=== PATIENT | female | born 1945 | race Caucasian/White ===

== ENCOUNTER → 2022-12-30 | Outpatient (CLI) | payer MEDICARE, OTHER, SELFPAY ==
[2022-12-30 12:51] LABS: Amphetamine Urine VISTA NEGATIVE (<1000 ng/mL); Barbiturate Urine VISTA NEGATIVE (< 200 ng/mL); Benzodiazepine Urine VISTA NEGATIVE (< 200 ng/mL); Cocaine Urine VISTA NEGATIVE (< 300 ng/mL); Ecstacy Urine VISTA NEGATIVE (< 500 ng/mL); Methadone Urine VISTA NEGATIVE (< 300 ng/mL); PCP Urine VISTA NEGATIVE (< 25 ng/mL); THC Urine VISTA NEGATIVE (< 50 ng/mL); Vista UDS pH Range 5
== END | disposition home or self-care (01) ==
PROVIDERS: PCP Family Medicine; Referring Provider Anesthesiology Pain Medicine; Visit Provider Anesthesiology Pain Medicine
DX: F11.20 Opioid dependence, uncomplicated (principal)
CPT/HCPCS: 80307

== ENCOUNTER → 2023-02-19 | Outpatient (CLI) | payer MEDICARE, OTHER, SELFPAY ==
[2023-02-19 12:17] LABS: Amphetamine Urine VISTA NEGATIVE (<1000 ng/mL); Barbiturate Urine VISTA NEGATIVE (< 200 ng/mL); Benzodiazepine Urine VISTA NEGATIVE (< 200 ng/mL); Cocaine Urine VISTA NEGATIVE (< 300 ng/mL); Ecstacy Urine VISTA NEGATIVE (< 500 ng/mL); Methadone Urine VISTA NEGATIVE (< 300 ng/mL); PCP Urine VISTA NEGATIVE (< 25 ng/mL); THC Urine VISTA NEGATIVE (< 50 ng/mL); Vista UDS pH Range 5
== END | disposition home or self-care (01) ==
PROVIDERS: PCP Family Medicine; Referring Provider Anesthesiology Pain Medicine; Visit Provider Anesthesiology Pain Medicine
DX: F11.20 Opioid dependence, uncomplicated (principal)
CPT/HCPCS: 80307

== ENCOUNTER → 2023-08-05 | Outpatient (CLI) | payer MEDICARE, OTHER, SELFPAY ==
--- NOTE | 2023-08-06 10:40 | PFT ---
INTRODUCTION: The patient is a 78-year-old female who presents for pulmonary function studies secondary to a diagnosis of shortness of breath. Respiratory therapy reported good patient effort. Bronchodilators were used during testing. INTERPRETATION: Forced expiration spirometry demonstrates no evidence of large airways obstructive ventilatory defect. There was no significant response to aerosolized bronchodilators. Spirograms are of good quality and plateau normally. Body plethysmography was performed and revealed a decreased TLC to 3.89 L, 68% of predicted, indicative of a moderate restrictive ventilatory impairment. Diffusion capacity by single breath CO is reduced to 59% of predicted. 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
== END | disposition home or self-care (01) ==
LOC: PSN 10:15
PROVIDERS: PCP Family Medicine; Referring Provider Internal Medicine Critical Care Medicine; Visit Provider Internal Medicine Critical Care Medicine
DX: R06.02 Shortness of breath (principal)
CPT/HCPCS: 94060; 94726; 94729

== ENCOUNTER → 2023-08-11 | Outpatient (CLI) | payer MEDICARE, OTHER, SELFPAY ==
[2023-08-11 13:45] VITALS: PULSE 102; PULSE 108; PULSE 110; PULSE 113; PULSE 118; PULSE 79; PULSE 83; PULSE 94; O2SAT 91; O2SAT 92; O2SAT 93; O2SAT 94
--- NOTE | 2023-08-12 07:21 | WT_ITS ---
PSN 6 Minute Walk Test 6 Minute Walk Test 6 Minute Walk Test: 6 Minute Walk Test PSN:6-Minute Walk Test Start: 08/11/23 13:45 Freq: Status: Active Protocol: [id number] Document 08/11/23 13:45 [facility] (Rec: 08/11/23 13:55 [facility] [id number]) 6 Minute Walk Test Date Performed 08/11/23 Time Performed 12:30 Height 5 ft 3 in Weight: 182 lb Weight in Pounds 182.[address]: Eliu Justin Assistive device used: Walker Pre-test Oxygen Delivery Method Room Air Pulse Ox 93 Pulse Rate (60-100) 79 Dyspnea Irina Scale (0-10) 0 1st minute Oxygen Delivery Method Room Air Pulse Ox 93 Pulse Rate (60-100) 94 Dyspnea Irina Scale (0-10) 2 Number of Rests Taken 0 2nd minute Oxygen Delivery Method Room Air Pulse Ox 92 Pulse Rate (60-100) 102 H Dyspnea Irina Scale (0-10) 2 Number of Rests Taken 0 3rd minute Oxygen Delivery Method Room Air Pulse Ox 93 Pulse Rate (60-100) 108 H Dyspnea Irina Scale (0-10) 3 Number of Rests Taken 0 Reported Symptoms Increased Work of Breathing 4th minute Oxygen Delivery Method Room Air Pulse Ox 91 Pulse Rate (60-100) 118 H Dyspnea Irina Scale (0-10) 3 Number of Rests Taken 0 Reported Symptoms Increased Work of Breathing 5th minute Oxygen Delivery Method Room Air Pulse Ox 93 Pulse Rate (60-100) 113 H Dyspnea Irina Scale (0-10) 3 Number of Rests Taken 0 Reported Symptoms Increased Work of Breathing 6th minute Oxygen Delivery Method Room Air Pulse Ox 94 Pulse Rate (60-100) 110 H Dyspnea Irina Scale (0-10) 3 Number of Rests Taken 0 Reported Symptoms Increased Work of Breathing Post-test Oxygen Delivery Method Room Air Pulse Ox 94 Pulse Rate (60-100) 83 Dyspnea Irina Scale (0-10) 0 Full Laps Walked 13 Partial Lap, Number of Tiles Walked 0 Total Distance Walked (ft) 767 Interpretation Interpretation: The patient ambulated 767 feet over the course of 6 minutes beginning on room air with the use of a wheelchair walker. Pretesting oxygen saturation was noted to be 93% on room air. With ambulation, the daniel oxygen saturation was 91%. There was no significant exertional oxygen desaturation. Recommendations Recommendations: There is no indication for the use of supplemental oxygen at this time.
== END | disposition home or self-care (01) ==
LOC: PSN 12:16
PROVIDERS: PCP Family Medicine; Referring Provider Internal Medicine Critical Care Medicine; Visit Provider Internal Medicine Critical Care Medicine
DX: R06.02 Shortness of breath (principal)
CPT/HCPCS: 94618

== ENCOUNTER → 2023-11-26 | Outpatient (CLI) | payer MEDICARE, OTHER, SELFPAY ==
--- OUTSIDE RECORDS SUMMARY | 2023-11-26 19:40 | XMS RPT_ITS | CCD ---
Author Name Unknown Address [id number] [place] [address] Organization [facility] Care Team Providers Care Academic Advisor Name Role Phone AMANDA MORALES Admitting Unavailable DEX JUSTIN Referring Unavailable DEX JUSTIN Consulting Unavailable AMANDA MORALES Attending Unavailable AMANDA MORALES Primary Care Unavailable PROVIDER, UNKNOWN Consulting Unavailable PROVIDER, UNKNOWN Consulting Unavailable PROVIDER, UNKNOWN Consulting Unavailable DEX JUSTIN Consulting Unavailable CHI JUSTIN Attending Unavailable CHI JUSTIN Primary Care Unavailable CHI JUSTIN Admitting Unavailable PROVIDER, UNKNOWN Consulting Unavailable PROVIDER, UNKNOWN Consulting Unavailable PROVIDER, UNKNOWN Consulting Unavailable DEX JUSTIN Primary Care Unavailable DEX JUSTIN Admitting Unavailable DEX JUSTIN Attending Unavailable DEX JUSTIN Consulting Unavailable PROVIDER, UNKNOWN Consulting Unavailable PROVIDER, UNKNOWN Consulting Unavailable PROVIDER, UNKNOWN Consulting Unavailable Nhan COLMENARES, Dex Phillips Unavailable ([place]), [facility] Unavailabl e Dr. Milad Mccain MD Unavailable [facility] Unavailable [phone] Medicine [facility], Pulmonary Unavailable Vicky [employer] WORKER, Bushra Unavailable Ray WARREN, Emi Grey Unavailable Real JEROMEN, Samaria Perez Unavailable Unavailable Kulwinder JEROMEN, Shantelle Unavailable Unavailable Rosie Soni Unavailable Unavailable Sena RAI, Annalee Perera Unavailable Unavaila farida Franklin [employer], Jose Rafael Unavailable Unavailable Chris RAI, Martha Sweeney Unavailable Unavailable Zulay [employer], Sophie Manley Unavailable Unavailab angela Bowers LPN, Nereida Caceres Unavailable Unavailab Coral Rodríguez MA Unavailable Unavailable ZaGraciela benites LPN Unavailable Unavailable Unavailable Unavailable Allergies Allergy Classification Reported Allergen(s) Allergy Type Date of Onset Reaction(s) Facility (1 source) meloxicam Drug Allergy [facility] Repository (1 source) STEROID Drug allergy (disorder) [facility] Repository (1 source) meloxicam Drug Allergy Shortness of breath [facility] ([facility]) Propoxyphene Drug Allergy Nausea, Vomiting [facility] Medications Current Medications Medication Drug Class(es) Dates Sig (Normalized) Sig (Original) celecoxib 200 mg oral capsule (1 source) Nonsteroidal Anti-inflammator y Drug Start: 3 CeleBREX 200 mg capsule ; 1 (one) Capsule qd prn for 0 days Quantity: 30 {Capsule} Refills: 5 Ordered: 19-May-2023 MD Dex Justin Start: 19-May-2023 hydroCHLOROthiazide 25 mg oral tablet (1 source) Thiazide Diuretic Start: 3 hydroCHLOROthiazide 25 mg tablet ; 1/2 Tablet daily for 0 days Quantity: 45 {Tablet} Refills: 1 Ordered: 28-Oct-2023 MD Dex Justin Start: 28-Oct-2023 lisinopril 10 mg oral tablet (1 source) Angiotensin Converting Enzyme Inhibitor Start: 3 lisinopriL 10 mg tablet ; 2 (two) Tablet q am and 1 q pm for 0 days Quantity: 270 {Tablet} Refills: 1 Ordered: 18-Jun-2023 MD Dex Justin Start: 18-Jun-2023 Comments: wm Completed/Discontinued Medications Medication Drug Class(es) Dates Sig (Normalized) Sig (Original) acyclovir 800 mg oral tablet (1 source) Herpesvirus Nucleoside Analog DNA Polymerase Inhibitor, Herpes Simplex Virus Nucleoside Analog DNA Polymerase Inhibitor, Herpes Zoster Virus Nucleoside Analog DNA Polymerase Inhibitor Start: 08-16-2013 End: 06-17-2014 ACYCLOVIR, 800MG (Oral Tablet) ; 1 (one) Tablet Tablet 5 times a day ( every 4 hours) for 0 days Quantity: 35 {Tablet} Refills: 0 Ordered: 17-Jun-2014 BONITA Bowers Beth Start: 16-Aug-2013 End: 17-Jun-2014 Status: Inactive Comments: Zoster Problems Active Problems Problem Classification Problem Date Documented Da te Episodic/Chronic Abdominal hernia (2 sources) Umbilical hernia; Translations: [Umbilical hernia without obstruction or gangrene] 06-09-2023 Episodic Abdominal pain (2 sources) Abdominal pain, generalized 12-12-2021 Episodic Acute bronchitis (2 sources) Acute bronchitis; Translations: [Acute bronchitis, unspecified] 12-12-2021 Episodic Administrative/social admission (20 sources) Issue of repeat prescriptions 12-12-2021 Episodic Chronic kidney disease (11 sources) Chronic kidney disease stage 3; Translations: [Chronic kidney disease, Stage III (moderate)] 06-09-2023 Chronic Chronic obstructive pulmonary disease and bronchiectasis (1 source) Bronchitis; Translations: [Bronchitis, not specified as acute or chronic] 10-31-2014 Episodic Conditions associated with dizziness or vertigo (2 sources) Vertigo; Translations: [Dizziness and giddiness] 12-12-2021 Episodic Diabetes mellitus with complications (11 sources) Metabolic disease; Translations: [Type 2 diabetes mellitus with other specified complication] 06-09-2023 Chronic Diabetes mellitus without complication (11 sources) Diabetes mellitus; Translations: [Type 2 diabetes mellitus without complications] 12-05-2021 Chronic Diseases of mouth; excluding dental (2 sources) Parotid sialolithiasis; Translations: [Sialolithiasis] 06-09-2023 Episodic Essential hypertension (20 sources) Benign essential hypertension; Translations: [Essential (primary) hypertension] 10-06-2023 Chronic Immunizations and screening for infectious disease (6 sources) Needs influenza immunization; Translations: [Encounter for immunization] 06-09-2023 Episodic Nausea and vomiting (2 sources) Nausea; Translations: [Nausea] 12-12-2021 Episodic Nonmalignant breast conditions (2 sources) Mastodynia; Translations: [Mastodynia] 06-09-2023 Episodic Osteoarthritis (20 sources) Degenerative joint disease involving multiple joints; Translations: [Polyosteoarthritis, unspecified] 06-09-2023 Chronic Past or Other Problems Problem Classification Problem Date Documented Da te Episodic/Chronic Unclassified (1 source) Follow up consultation - The patient is here to follow-up after Emergency Room/Urgent Care ([facility] with pnuemonia. Was given a prescription for Augmentin and Azithromycin.) on : (04-26-23). Note for Consultation follow-up : Took full course of antibiotics and improved but still has bouts of dyspnea. 05-13-2023 Unclassified (1 source) [ADDITIONAL REASON] Transition into care - The patient is transitioning into care from an emergency room and a summary of care was reviewed. 05-13-2023 Unclassified (1 source) Arm pain - The pain is in both arms (patient reports that it hurts in her shoulders especially when she lifts her arms). The onset of the pain has been acute and has been occurring in a persistent pattern for 2 days. The course has been constant. The pain is described as severe. Note for Pain : rotator cuff 02-19-2023 Unclassified (1 source) [ADDITIONAL REASON] feet swelling - patient reports feet swelling for about a week and also reports painpatient reports some ankle pain as well, patient also took water pill which did not help 02-19-2023 Unclassified (1 source) Breast lump - The lump is on the right breast. The onset of the lump has been sudden and has been occurring in a persistent pattern for 3 days. The lump is described as tender. The lump is described as mild. Note for Breast lump : Last mammogram 2011. She has small dogs who push off her chest when they are on her lap. She may have been traulatized by this but does not recall a specific instance. 08-06-2021 Unclassified (1 source) Breathing trouble - The breathing trouble has been occurring in an intermittent pattern for 1 month. The course has been increasing. The breathing trouble is moderate. It is described as tightness (states that also her heartbeat feels funny like palpitations) and shortness of breath. The breathing trouble occurs with normal activities, occurs at rest and occurs when lying down. There has been no associated chest pain. Note for Breathing trouble : About 2 weeks ago, had an episode where she was feeling short of breath laying in bed and she got up to use the bathroom and then was instantly dripping wet in sweat. Last BP about 1 week ago was 146/79. 05-01-2021 Unclassified (1 source) Leg Pain - The leg pain began gradually over time and has been occurring for 2 weeks. The symptoms have been occurring in an increasing pattern. The symptoms are described as a cramping (for three days) and are moderate in severity. There is involvement of the left calf. There are no precipitating factors. Note for Leg pain : Also complains of left hand numbness and tingling. Worse at night. 04-12-2020 Unclassified (1 source) Elbow pain - The onset of the pain has been acute and has been occurring in a persistent pattern for 1 week. The course has been without change. The pain is moderate and is characterized as a dull aching. The pain is described as being located down the entire arm in the right elbow. The symptoms have been associated with stiffness and swelling in the elbow. Note for Elbow pain : No injury 05-26-2018 Unclassified (1 source) Knee Pain - The onset of the knee pain has been acute and has been occurring in a persistent pattern for months. The course has been increasing. The knee pain is moderate in the right knee. Note for Knee pain : Requesting knee injection. She extensive DJD , has had injectuions in the past 04-14-2018 Unclassified (1 source) Jaw swelling - Right side of jaw swollen and painful since last night. Complains of occasional nausea. No fever. reviewed by B 01-07-2018 Unclassified (1 source) Injection - Patient was seen in the office yesterday for right knee pain and was sent for an xray. She is still having pain and is here today for an injection. 11-28-2016 Unclassified (1 source) Knee Pain - The onset of the knee pain has been acute and has been occurring in a persistent pattern for 2 weeks. The course has been decreasing. The knee pain is moderate in the right knee. The knee pain is characterized as a burning sensation. The knee pain is aggravated by squatting, kneeling, stairs and prolonged standing. The knee pain is relieved by sitting. Note for Knee pain : reviewed by [facility] 11-27-2016 Unclassified (1 source) Cold Symptoms - Symptoms include runny nose, ear pain (right side), ear fullness, sore throat and headache, but do not include sneezing, dry cough, productive cough, fever or facial pain. The onset was sudden 6 day(s) ago. The symptoms occur constantly. The patient describes this as moderate in severity and unchanged. Note for Upper respiratory infection : reviewed by [facility] 12-02-2014 Unclassified (1 source) Cold Symptoms - Symptoms include nasal congestion, runny nose, ear pain, ear fullness, sore throat, scratchy throat, dry cough, headache and facial pain, but do not include fever, chills or general malaise. The onset was sudden 1 week(s) ago. The symptoms occur constantly. The patient describes this as moderate in severity and worsening. Current treatment includes cough suppressants. Note for Upper respiratory infection : Complains of shortness of breath. reviewed by [facility] 10-31-2014 Unclassified (1 source) Elbow pain - The onset of the pain has been acute and has been occurring in a persistent pattern for 2 days. The course has been increasing. The pain is moderate and is characterized as a dull aching and burning sensation. The pain is described as being located down the entire arm in the right elbow. The symptoms have been associated with swelling in the elbow. Note for Elbow pain : No trauma. 09-14-2014 Unclassified (1 source) Abdominal pain - The onset of the abdominal pain has been gradual and has been occurring in a persistent pattern for 5 days. The course has been constant. The pain is described as a moderate burning (and pt states that her stomacheon the outside is numb. ). The pain is located in the left upper quadrant (and at times radiate into left upper back.). The symptoms have no aggravating factors. Note for Abdominal pain : Takes 2 tramadols every 6 hours and 2 aspirin once a day. Was given this for her back pain but now also helping with abdominal pain. No associated symptoms but she is wondering if somehow connnected to her back pain that she is having and was seen for a week ago. Has been on any meds for stomach. 08-16-2013 Unclassified (1 source) Back pain - The onset of the back pain has been sudden and has been occurring in a persistent pattern for 4 days (Had been stretching and cleaning blinds all last week and pain started in night.). The course has been increasing. The pain is characterized as burning. The symptoms have no aggravating factors. Note for Back pain : Pain starts left upper side and radiates into left upper back. Using Tramadol 1 tab every 6 hours and using Tylenol in between. No other associated symptoms. Has been wearing a brace since . Pt has a major kyphosis from scoliosis and gets back pain often. 08-09-2013 Unclassified (1 source) Cough and some Wheezing - Pt here today because she has a cough but her main concern is that whenever she lays on her right sound she has some wheezing- sounds like a whistle. Her cough is nonproductive. These symptoms started last . No fever and none today. Pulse ox 97%. No other cold symptoms at all. no chest or back back. Only discomfort she has is in her right color bone which she feels is unrelated to cough and wheezing. also ill. 10-19-2012 Unclassified (1 source) Rash - The onset of the rash has been sudden and has been occurring for 1 month. The course has been increasing. The rash is characterized as red and raised above the skin. The rash was first seen on the lower extremity (right lower leg). There has been no progression. There has been associated itching, erythema and edema (in ankle). Note for Rash : Saw manager billing but they never found the cause. 07-29-2011 Unclassified (1 source) Abdominal pain - The onset of the pain has been gradual and has been occurring in a persistent pattern for 5 months. The pain is described as a cramping. The pain is located in the lower abdomen. The symptoms have been associated with constipation and diarrhea. Note for Abdominal pain : pain is ot worse, is noticing more difficulty w bowel movement , stool seems thinner. No blood noted. Occassionally uses stool sofetener. 04-26-2011 Unclassified (1 source) Routine - Pt here for routine visit for HTN and DJD. States that BP Doing ok. BP here was 144/69. Currently on Lisinopril 5 mg daily and HCTZ 25 mg daily. Has BP cuff at home but rarely checks it. Denies chest pain or sob. Nop headaches or visual problmes. No diziness. No edema.Also here for DJD. Had been given rx for Mobic which really helped but then pt was getting SOB any time she took it so she stopped. Only using OTC tlenol and some Naproxen but does not help with pain very well. Needs refills on medications. Has used ibuprofen with no problems but just wasn't effective. 12-14-2010 Results Test Name Value Interpretation Reference Range Facil ity Vital Signs Date Time Vital Sign Value Performing Clinician Faci lity 06-09-2023 08:19-0400 Body height 153.67 cm Dex Justin MD Work Phone: [facility]; [facility]. 06-09-2023 08:19-0400 Body mass index (BMI) [Ratio] 35.92 kg/m2 Dex Justin MD Work Phone: [facility]. 06-09-2023 08:19-0400 Body surface area Derived from formula 1.83 m2 Dex Justin MD Work Phone: [facility]. 06-09-2023 08:19-0400 Body weight 84.82 kg Dex Justin MD Work Phone: [facility]. 06-09-2023 08:19-0400 Diastolic blood pressure 77 mm[Hg] Dex Justin MD Work Phone: [facility] Encounters Encounter Date Encounter Type Care Provider Facility Start: 10-06-2023 End: 10-07-2023 Orders Dex Justin MD Work Phone: [facility] Start: 09-18-2023 End: 09-19-2023 ambulatory [facility] Start: 06-18-2023 End: 06-18-2023 Medication Dex Justin MD Work Phone: [facility]. Start: 06-09-2023 End: 06-09-2023 Office outpatient visit 15 minutes Dex Justin MD Work Phone: [facility]. Start: 05-20-2023 End: 05-20-2023 Orders Dex Justin MD Work Phone: [facility]. Start: 05-15-2023 End: 05-15-2023 ambulatory [facility] Start: 05-13-2023 End: 05-13-2023 Office outpatient visit 15 minutes Dex Justin MD Work Phone: [facility] Start: 05-02-2023 End: 05-02-2023 Telephone follow-up Dex Justin MD Work Phone: [facility] Start: 04-26-2023 End: 04-26-2023 Emergency department patient visit AMANDA MORALES [facility] Start: 02-19-2023 End: 02-19-2023 Office outpatient visit 15 minutes Dex Justin MD Work Phone: [facility]. Start: 12-16-2022 End: 12-16-2022 Initial preventive medicine new patient 65yrs&> Dex Justin MD Work Phone: [facility]. Start: 12-16-2022 End: 12-16-2022 Patient encounter procedure Dex Justin MD Work Phone: [facility]; [facility]. Start: 12-09-2022 End: 12-09-2022 Orders Dex Justin MD Work Phone: [facility]. Start: 09-09-2022 End: 09-09-2022 Orders Dex Justin MD Work Phone: [facility]. Start: 09-05-2022 End: 09-05-2022 Orders Dex Justin MD Work Phone: [facility]. Start: 09-04-2022 End: 09-04-2022 Office outpatient visit 15 minutes Dex Justin MD Work Phone: [facility]. Start: 06-11-2022 End: 06-11-2022 Office outpatient visit 15 minutes Dex Justin MD Work Phone: [facility]. Start: 01-01-2022 End: 01-01-2022 Medication Dex Justin MD Work Phone: [facility]. Start: 12-12-2021 End: 12-12-2021 Orders Dex Justin MD Work Phone: [facility]. Start: 12-12-2021 End: 12-12-2021 Patient encounter procedure Graciela Epps BONITA [facility]. Start: 12-12-2021 End: 12-12-2021 Periodic preventive med est patient 65yrs& older Dex Justin MD Work Phone: [facility]. Start: 12-05-2021 End: 12-05-2021 Orders Dex Justin MD Work Phone: [facility]. Start: 12-03-2021 End: 12-03-2021 Orders Dex Justin MD Work Phone: [facility]. Start: 12-03-2021 End: 12-03-2021 Orders Dex Justin MD Work Phone: [facility]. Start: 08-06-2021 End: 08-06-2021 Office outpatient visit 15 minutes Dex Justin MD Work Phone: [facility]. Start: 06-12-2021 End: 06-12-2021 Office outpatient visit 25 minutes Dex Justin MD Work Phone: [facility]. Start: 05-02-2021 End: 05-02-2021 Orders Dex Justin MD Work Phone: [facility]. Start: 05-01-2021 End: 05-01-2021 Office outpatient visit 15 minutes Dex Justin MD Work Phone: [facility]. Start: 12-11-2020 End: 12-06-2020 Historical Summary Dex Justin MD Work Phone: [facility]. Start: 12-11-2020 End: 12-11-2020 Patient encounter procedure Dex Justin MD Work Phone: [facility]. Start: 12-11-2020 End: 12-11-2020 Periodic preventive med est patient 65yrs& older eDx Justin MD Work Phone: [facility]. Start: 12-05-2020 End: 12-05-2020 Orders Dex Justin MD Work Phone: [facility]. Start: 11-14-2020 End: 11-14-2020 Orders Dex Justin MD Work Phone: [facility]. Start: 06-06-2020 End: 06-06-2020 Office outpatient visit 25 minutes Dex Justin MD Work Phone: [facility]. Start: 04-12-2020 End: 04-12-2020 Office outpatient visit 15 minutes Dex Justin MD Work Phone: [facility]. Start: 12-06-2019 End: 12-06-2019 Office outpatient visit 15 minutes Dex Justin MD Work Phone: [facility]. Start: 11-24-2019 End: 11-24-2019 Orders Dex Justin MD Work Phone: [facility]. Start: 09-02-2019 End: 09-02-2019 Historical Summary Dex Justin MD Work Phone: [facility]. Start: 06-18-2019 End: 06-18-2019 Office outpatient visit 15 minutes Dex Justin MD Work Phone: [facility]. Start: 06-07-2019 End: 06-07-2019 Office outpatient visit 15 minutes Dex Justin MD Work Phone: [facility]. Start: 12-08-2018 End: 12-08-2018 Office outpatient visit 15 minutes Dex Justin MD Work Phone: [facility]. Start: 05-26-2018 End: 05-26-2018 Office outpatient visit 15 minutes Dxe Justin MD Work Phone: [facility]. Start: 05-18-2018 End: 05-18-2018 Historical Summary Dex Justin MD Work Phone: [facility]. Start: 05-18-2018 End: 05-18-2018 Office outpatient visit 15 minutes Dex Justin MD Work Phone: [facility]. Start: 04-14-2018 End: 04-14-2018 Office outpatient visit 15 minutes Dex Justin MD Work Phone: [facility]. Start: 01-19-2018 End: 01-19-2018 [employer] Contact Call Dex Justin MD Work Phone: [facility]. Start: 01-07-2018 End: 01-07-2018 Office outpatient visit 15 minutes Dex Justin MD Work Phone: [facility]. Start: 11-24-2017 End: 11-29-2017 Office outpatient visit 15 minutes Dex Justin MD Work Phone: [facility]. Start: 11-18-2017 End: 11-18-2017 Historical Summary Dex Justin MD Work Phone: [facility]. Start: 05-28-2017 End: 05-28-2017 Office outpatient visit 15 minutes Dex Justin MD Work Phone: [facility]. Start: 11-28-2016 End: 11-28-2016 Office outpatient visit 15 minutes Dex Justin MD Work Phone: [facility]. Start: 11-27-2016 End: 11-27-2016 Office outpatient visit 15 minutes Dex Justin MD Work Phone: [facility]. Start: 06-26-2016 End: 06-26-2016 Office outpatient visit 15 minutes Dex Justin MD Work Phone: [facility]. Start: 05-03-2016 End: 05-03-2016 Medication Dex Justin MD Work Phone: [facility]. Start: 04-02-2016 End: 04-02-2016 Medication Dex Justin MD Work Phone: [facility]. Start: 03-20-2016 End: 03-20-2016 Medication Dex Justin MD Work Phone: [facility]. Start: 02-27-2016 End: 02-27-2016 Medication Dex Justin MD Work Phone: [facility]. Start: 01-25-2016 End: 01-25-2016 Medication Dex Justin MD Work Phone: [facility]. Start: 12-25-2015 End: 12-25-2015 Office outpatient visit 15 minutes Dex Justin MD Work Phone: [facility]. Start: 12-20-2015 End: 12-20-2015 Medication Dex Justin MD Work Phone: [facility]. Start: 11-13-2015 End: 11-13-2015 Medication Dex Justin MD Work Phone: [facility]. Start: 09-27-2015 End: 09-27-2015 Medication Dex Justin MD Work Phone: [facility]. Start: 08-15-2015 End: 08-15-2015 Medication Dex Justin MD Work Phone: [facility]. Start: 06-20-2015 End: 06-20-2015 Office outpatient visit 15 minutes Dex Justin MD Work Phone: [facility]. Start: 05-24-2015 End: 05-24-2015 Medication Dex Justin MD Work Phone: [facility]. Start: 05-18-2015 End: 05-18-2015 Medication Dex Justin MD Work Phone: [facility]. Start: 02-28-2015 End: 02-28-2015 Medication Dex Justin MD Work Phone: [facility]. Start: 12-19-2014 End: 12-19-2014 Office outpatient visit 15 minutes Dex Justin MD Work Phone: [facility]. Start: 12-02-2014 End: 12-02-2014 Office outpatient visit 15 minutes Dex Justin MD Work Phone: [facility]. Start: 11-15-2014 End: 11-15-2014 Medication Dex Justin MD Work Phone: [facility]. Start: 10-31-2014 End: 10-31-2014 Office outpatient visit 15 minutes Dex Justin MD Work Phone: [facility]. Start: 09-19-2014 End: 09-19-2014 Medication Dex Justin MD Work Phone: [facility]. Start: 09-14-2014 End: 09-14-2014 Office outpatient visit 15 minutes Dex Justin MD Work Phone: [facility]. Start: 08-16-2014 End: 08-16-2014 Medication Dex Justin MD Work Phone: [facility]. Start: 06-29-2014 End: 06-29-2014 Medication Dex Justin MD Work Phone: [facility]. Start: 06-17-2014 End: 06-17-2014 Office outpatient visit 15 minutes Dex Justin MD Work Phone: [facility]. Start: 05-16-2014 End: 05-16-2014 Medication Dex Justin MD Work Phone: [facility]. Start: 03-29-2014 End: 03-29-2014 Medication Dex Justin MD Work Phone: [facility]. Start: 02-02-2014 End: 02-02-2014 Medication Dex Justin MD Work Phone: [facility]. Start: 12-17-2013 End: 12-17-2013 Patient encounter procedure Dex Justin MD Work Phone: [facility]. Start: 10-25-2013 End: 10-25-2013 Medication Dex Justin MD Work Phone: [facility]. Start: 10-11-2013 End: 10-11-2013 Medication Dex Justin MD Work Phone: [facility]. Start: 08-25-2013 End: 08-25-2013 Medication Dex Justin MD Work Phone: [facility]. Start: 08-16-2013 End: 08-16-2013 Patient encounter procedure Dex Justin MD Work Phone: [facility]. Start: 08-09-2013 End: 08-09-2013 Patient encounter procedure Dex Justin MD Work Phone: [facility]. Start: 08-06-2013 End: 08-06-2013 Medication Dex Justin MD Work Phone: [facility]. Start: 07-09-2013 End: 07-09-2013 Medication Dex Justin MD Work Phone: [facility]. Start: 06-18-2013 End: 06-18-2013 Patient encounter procedure Dex Justin MD Work Phone: [facility]. Start: 06-14-2013 End: 06-14-2013 Medication Dex Justin MD Work Phone: [facility]. Start: 03-09-2013 End: 03-09-2013 Medication Dex Justin MD Work Phone: [facility]. Start: 12-18-2012 End: 12-18-2012 Patient encounter procedure Dex Justin MD Work Phone: [facility]. Start: 10-19-2012 End: 10-19-2012 Patient encounter procedure Dex Justin MD Work Phone: [facility]. Start: 09-04-2012 End: 09-04-2012 Medication Dex Justin MD Work Phone: [facility]. Start: 06-19-2012 End: 06-19-2012 Patient encounter procedure Dex Justin MD Work Phone: [facility]. Start: 04-02-2012 End: 04-02-2012 Medication Dex Justin MD Work Phone: [facility]. Start: 12-20-2011 End: 12-20-2011 Patient encounter procedure Dex Justin MD Work Phone: [facility]. Start: 09-18-2011 End: 09-18-2011 Medication Dex Justin MD Work Phone: [facility]. Start: 07-29-2011 End: 07-29-2011 Patient encounter procedure Dex Justin MD Work Phone: [facility]. Start: 06-14-2011 End: 06-14-2011 Patient encounter procedure Dex Justin MD Work Phone: [facility]. Start: 04-26-2011 End: 04-26-2011 Patient encounter procedure Dex Justin MD Work Phone: [facility]. Start: 04-19-2011 End: 04-19-2011 Medication Dex Justin MD Work Phone: [facility]. Start: 01-10-2011 End: 01-10-2011 Medication Dex Justin MD Work Phone: [facility]. Start: 12-14-2010 End: 12-14-2010 Patient encounter procedure Dex Justin MD Work Phone: [facility]. Start: 12-11-2010 End: 12-11-2010 Historical Summary Dex Justin MD Work Phone: [facility] Patient encounter procedure Nereida Bowers [facility] Procedures Date Procedure Procedure Detail Performing Clinician Start: 06-09-2023 End: 06-09-2023 Hemoglobin A1c/Hemoglobin.total in Blood Nereida Bowers [employer] Plan of Treatment Date Care Activity Detail Author Start: 12-19-2023 Patient encounter procedure Medical; PHYSICAL - physcial [facility]. Start: 19-Dec-2023 10:50 MD Dex Justin Appointment Request [facility]. Start: 12-12-2023 Comprehensive metabo lic panel CMP w/ GFR* (93195) Start: 12-Dec-2023 Request [facility]. Start: 12-12-2023 Hemoglobin glycosyla thang a1c HEMOGLOBIN A1C* (82027) Start: 12-Dec-2023 Request [facility]. Start: 12-12-2023 Lipid panel LIPID PANEL (8 0061) Start: 12-Dec-2023 Request [facility]. Start: 12-12-2023 Nursing evaluation o f patient and report Medical; Nurse visit - fasting labs-- [facility]. Start: 12-Dec-2023 9:40 NURSE, FLOAT Appointment Request [facility]. Start: 05-02-2021 TTE w or wo fol wcon,Doppler Echocardiogram, Complete with contrast per protocol if indicated ADULT (C8929) Start: 02-May-2021 Intent [facility]. dexAMETHasone so d phos (bulk) 100 % powder Ordered: 09-Aug-2013 MD Dex Justin [facility]. Immunizations Immunization Date Immunization Notes Care Provider Fa cility 12-16-2022 influenza virus vaccine, unspecified formulation Dex Justin MD Work Phone: [facility]. 12-16-2022 influenza, injectabl e, quadrivalent, contains preservative Dex Justin MD Work Phone: [facility]. Payers Date Payer Category Payer Unknown [id number] 1945 Unknown [id number] 1945 Unknown [id number] Medicare [id number] Unknown [id number] Unknown Social History Date Type Detail Facility Caffeine Use Caffeine Use [employer] [facility]. Tobacco Use: Tobacco Use: ; Former smoker . [facility]. Female [employer] [facility]. Work Phone: Never smoked tobacco [facility]. Work Phone: [facility] Work Phone: Summary Purpose Family History Breast Cancer Status:Active Comments:Materna l Aunt. Cerebrovascular Accident Status:Active Comment s:Father. Colon Cancer Status:Active Comments:Negativ e Family History Of. Coronary Artery Disease Status:Active Comments :Father. Diabetes Mellitus Type II Status:Active Commen ts:Negative Family History Of. hemochromatosis Status:Active Comments:2 siste rs with it Hypertension Status:Active Comments:Mother. Father. Lung Cancer Status:Active Comments:Mother. Advance Directives No Advanced Directives Records FoundNo Advanced Directives Records Found Additional Source Comments INFORMATION SOURCE (unrecogn ized section and content) DATE CREATED AUTHOR AUTHOR'S ORGANIZ ATION 09/21/2023 [facility] FOR RECORDS PERTAINING TO PATIENTS WHO ARE OR HAVE BEEN ENROLLED IN A CHEMICAL DEPENDENCY/SUBSTANCEABUSE PROGRAM, SOME INFORMATION MAY BE OMITTED. This clinical summary was aggregated from multiple sources. Caution should be exercised in using it in the provision of clinical care. This summary normalizes information from multiple sources, and as a consequence, information in this document may materially change the coding, format and clinical context of patient data. In addition, data may be omitted in some cases. CLINICAL DECISIONS SHOULD BE BASED ON THE PRIMARY CLINICAL RECORDS. [employer] provides no warranty or guarantee of the accuracy or completeness of information in this document.
== END | disposition home or self-care (01) ==
LOC: SL 19:36
PROVIDERS: PCP Family Medicine; Referring Provider Nurse Practitioner Acute Care; Visit Provider Nurse Practitioner Acute Care
DX: G47.33 Obstructive sleep apnea (adult) (pediatric) (principal)
CPT/HCPCS: 95811

== ENCOUNTER → 2024-02-17 | Outpatient (CLI) | payer MEDICARE, OTHER, SELFPAY ==
--- NOTE | 2024-02-17 | IMM_PTH ---
PATIENT: ABUNDIO VAZQUEZ LOC: [facility] U#:[id number] AGE/SX: 79/F ROOM: RE02/17/[address]: Dr. Sean Johnson MD : 1945 BED: DIS: 02/17/2024 SPEC #: [id number] RECD: 02/19/24 10:33 STATUS: MARÍA ELENA REQ #: [id number] WES: 02/17/24 00:[address]: Sean Johnson DEPT: IMMUNOHISTOCHEMISTRY RECD BY: Nitin Porras ENTERED: 02/19/24 10:34 SP TYPE: IMMUNO OTHR DR: Dr. Dex Justin MD Tissues: Breast, NOS Procedures: CALPONIN-1 (add) CK5-6 (add) CK8 (add) E-CAD (add) HER2 CHERYL (add) KI-67 (add) P53 (add) CA (add) IN SITU HYBRIDIZATION P40 (add) ER (initial) PHYSICIAN & INSTITUTION [place] [id number] SPECIMEN INFORMATION: Tissue Source: Right breast tissue Clinical Info: Right breast mass Specimen Number: [id number] CPT code: 01425,67625v1,89412r8,14206r3 METHODOLOGY: Deparaffinized sections of prefer/formalin-fixed tissue or PAP/DQ stained slides are incubated with monoclonal/polyclonal antibodies/oligonucleotide probes. Localization is made via biotin free immunoperoxidase method. Appropriate controls are performed and reacted as expected. Results on target cell population are indicated in the following table: RESULTS: ANTIBODY / CLONE RESULT E-Cad (ECH-6) positive CK8 (90woziT04) positive Calponin-1 (LP484O) negative CK5-6 (D5 & 1684) negative P40 (BC28) negative P53 (DO-7) negative (null pattern) Ki-67 (30-9) positive, low ~5% MORPHOMETRIC ANALYSIS ER (clone 6F11) >95%, strong intensity CA (clone 16/1E2) >95%, moderate intensity Her-2Neu (clone CB11) 1-2+ The prognostic test for HER2 is performed on formalin-fixed paraffin embedded tissue. A 3+ (positive) staining pattern is defined as intense, homogeneous, complete, circumferential membranous staining in >10% of contiguous tumor cells. A similar weak (2+) staining pattern is interpreted as equivocal. MAXIME follow-up testing is recommended for all equivocal cases. Positivity/negativity for ER/CA is reported if > or < 1% of the tumor cells are immuno- reactive, respectively. The ASCO/CAP criteria is used for scoring. Reference: Journal of Clinical Oncology, 2013; 31:9805-5677 & 2010; 16:4758-3744. Ischemic time: Less than one hour. Duration of fixation: 48 Hrs; Sample Adequate: Yes. These assays have not been validated on decalcified tissues. Results should be interpreted with caution given the likelihood of false negativity on decalcified specimens or fixation greater than 72 hours. Alternative testing methods (FISH/dualISH for Her2; gene expression for ER) are recommended, if applicable. Please notify the laboratory if additional testing is required. These tests were developed and their performance characteristics determined by [facility]. They may not have been cleared or approved by the U.S. Food and Drug Administration. The FDA has determined that such clearance or approval is not necessary. The above immunohistochemical/dualISH markers are ordered and reviewed by the Pathologist. INTERPRETATION: Right breast tissue, core biopsy: Invasive ductal carcinoma. Positive for estrogen receptors (favorable prognostic indicators). Positive for progesterone receptors (favorable prognostic indicators). Equivocal for overexpression of Nig9dfq. SJ/mr 02/20/24 ADDENDUM ADDENDUM ADDENDUM ADDENDUM ADDENDUM ADDENDUM ADDENDUM ADDENDUM ADDENDUM ADDENDUM ADDENDUM ADDENDUM ADDENDUM ADDENDUM ADDENDUM ADDENDUM ADDENDUM ADDENDUM ADDENDUM ADDENDUM ADDENDUM ADDENDUM 02/23/2024 13:53 ADDENDUM 02/23/2024 13:53 ADDENDUM 02/23/2024 13:53 ADDENDUM 02/23/2024 13:53 ADDENDUM 02/23/2024 13:53 IN SITU HYBRIDIZATION (MAXIME) FOR HER2 Interpretation: Negative / Not Amplified HER2 : CEP-17 Ratio: 1.66 Average HER2 Signal: 2.25 Average CEP-17 Signal: 1.35 Number of Tumor Cells Scanned: 50 Interpretative Information: The INFORM HER2 Dual MAXIME DNA Probe Cocktail assay is performed on formalin-fixed paraffin embedded tissue and determines HER2 gene status by detecting HER2 copies via silver in situ hybridization (SISH) and Chromosome 17 copies via chromogenic red in situ hybridization on tumor cells. A minimum of 20 cells representing > 10% of contiguous and homogeneous invasive tumor cells were analyzed. HER2 gene status is classified as Non-amplified (HER2/Chr17 ratio < 2.0) or Amplified (HER2/Chr17 ratio greater than or equal to 2.0). If the resulting HER2/Chr17 ratio falls within 1.8 - 2.2 (Borderline), retesting by FISH is recommended. Reference: Minna HOUSTON, Rosaura JACOB, Asa NOE, et al: Recommendations for Human Epidermal Growth Factor Receptor 2 Testing in Breast Cancer: [place] Society of Clinical Oncology / College of [place] Pathologists Clinical Practice Guideline Update. J Clin Oncol 31:7322-6562, 2013. GERARDO/ 02/23/2024
--- NOTE | 2024-02-17 12:30 | BRBX_PTH ---
PATIENT: ABUNDIO VAZQUEZ LOC: [facility] U#:[id number] AGE/SX: 79/F ROOM: RE02/17/[address]: Dr. Sean Johnson MD : 1945 BED: DIS: 02/17/2024 SPEC #: [id number] RECD: 02/17/24 13:34 STATUS: MARÍA ELENA RELeeroy #: [id number] WES: 02/17/24 12:[address]: Sean Johnson DEPT: SURGICAL PATHOLOGY RECD BY: Tessy Lucero ENTERED: 02/18/24 09:00 SP TYPE: BREAST BX OTHR DR: Dr. Dex Justin MD Tissues: Right breast, NOS Procedures: Surgery Specimen Level IV HEADER OPERATION: Right breast biopsy PRE-OP DIAGNOSIS: Right breast mass TISSUE SUBMITTED: Right breast tissue MICROSCOPIC DIAGNOSIS Right breast tissue, core biopsy: Invasive ductal carcinoma. See cancer summary in the comment section. SJ/ 02/19/2024 COMMENT INVASIVE BREAST CANCER SUMMARY: Procedure: Needle core biopsy Specimen Laterality: Right Tumor site: Not specified Histologic type: Invasive ductal carcinoma Provisional Histologic grade ([place] Grade): Tubule Differentiation Score: 1 Nuclear Pleomorphism Score: 1 Mitotic Rate Score: 1 Overall grade: 1 (Score of 3) Tumor Size (greatest dimension): 0.7cm in greatest length Ductal Carcinoma Insitu: Not identified Angiolymphatic Invasion: not identified. Microcalcifications: not identified. Additional Findings: None Breast Marker Study: ([id number]) ER: positive (>95%, strong intensity) AL: positive (>95%, moderate intensity) Her2: equivocal (1-2+) [id number]: Negative/ Not amplified The above summary is in compliance with [employer] of [employer] [place] Pathology (CAP) Cancer Protocols Checklist and [place] Joint Committee on Cancer (AJCC), Staging Manual, 8th Ed. Immunohistochemistry ([id number]) supports the above diagnosis. Case has been reviewed in consultation with Dr. Todd who concurs with the above diagnosis. IDC:AM MICROSCOPIC DESCRIPTION Slides are reviewed. GROSS DESCRIPTION Received in fixative is one container labeled with the patient's name and designated Right breast mass. The specimen consists of multiple elongated fragments of cruz-yellow fibroadipose tissue that in aggregate measure 2.5 x 0.5 x 0.1 cm. The specimen is totally submitted in one cassette. Héctor 02/18/2024 TC:0 CPT:24434
== END | disposition home or self-care (01) ==
LOC: LABSPEC 13:35
PROVIDERS: PCP Family Medicine; Referring Provider Surgery; Visit Provider Surgery
DX: C50.911 Malignant neoplasm of unspecified site of right female breast (principal)
CPT/HCPCS: 88305; 88341; 88342; 88368

== ENCOUNTER 2024-04-06 14:58 | Observation (INO) | payer MEDICARE, OTHER, SELFPAY ==
--- NOTE | 2024-03-30 08:25 | NM_ITS ---
PROCEDURE: NUCLEAR MEDICINE Injection Iva Node - RIGHT breast(s). REASON FOR EXAM: Female, 79 years old. Right breast cancer. TECHNIQUE: Iva node localization using radionuclide methods of the RIGHT breast(s) was performed following subcutaneous administration of 1.2 mCi of of sulfur colloid Tc-99m. COMPARISON STUDIES : NM - None. CR - Not available for review at this time. CT - Not available for review at this time. MR - Not available for review at this time. US - Not available for review at this time. FINDINGS: 1.2 mCi of technetium labeled sulfur colloid was injected subcutaneously in the right periareolar region for sentinel node imaging. NM/Lymph Node Injection Only IMPRESSION: 1.2 mCi of technetium labeled sulfur colloid was injected subcutaneously in the right periareolar region for sentinel node imaging. Electronically Signed: Og Egan MD at 9:29 EDT ,
[2024-03-30 08:44] VITALS: BP 154/62; PULSE 77; RESP 16; TEMP 36.4; O2SAT 95; BMI 30.9
[2024-03-30] MEDS: Lactated Ringers 1,000 ML 15 ML IV (08:55)
[2024-03-30 09:19] LABS: Bedside Glucose 152 mg/dL (74-106)
--- NOTE | 2024-03-30 11:22 | NURSING ---
case cancelled 03/27/24 d/t emergency add on case. To be rescheduled 04/06/24
[2024-04-06] VITALS (11 sets, daily range): BP systolic 128–159; BP diastolic 45–68; PULSE 58–81; RESP 16; TEMP 36.3–37.4; O2SAT 94–97; BMI 31.2
--- NOTE | 2024-04-06 | IMM_PTH ---
PATIENT: ABUNDIO VAZQUEZ LOC: MS[facility] U#:[id number] AGE/SX: 79/F ROOM: [facility] RE04/06/[address]: Dr. Sean Johnson MD : 1945 BED: 1 DIS: 04/07/2024 SPEC #: [id number] RECD: 04/12/24 12:45 STATUS: MARÍA ELENA REQ #: [id number] WES: 04/06/24 00:[address]: Sean Johnson DEPT: IMMUNOHISTOCHEMISTRY RECD BY: Nitin Porras ENTERED: 04/12/24 12:45 SP TYPE: IMMUNO OTHR DR: Dr. Dex Justin MD Tissues: A - Axillary lymph node, NOS Procedures: Pankeratin (add) CK7 (initial) PHYSICIAN & INSTITUTION [place] [id number] SPECIMEN INFORMATION: Tissue Source: A- Right sentinel lymph node Clinical Info: Right breast cancer Specimen Number: [id number] CPT code: 45561,30215 METHODOLOGY: Deparaffinized sections of prefer/formalin-fixed tissue or PAP/DQ stained slides are incubated with monoclonal/polyclonal antibodies/oligonucleotide probes. Localization is made via biotin free immunoperoxidase method. Appropriate controls are performed and reacted as expected. Results on target cell population are indicated in the following table: RESULTS: ANTIBODY / CLONE RESULT Block A CK7 (OV-TL12/30) positive, micrometastasis AE1-3 (AE1/AE3/PCK26) positive, micrometastasis These tests were developed and their performance characteristics determined by [facility]. They may not have been cleared or approved by the U.S. Food and Drug Administration. The FDA has determined that such clearance or approval is not necessary. The above immunohistochemical/dualISH markers are ordered and reviewed by the Pathologist. INTERPRETATION: A. 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 SJ/mr 04/13/2024 COMMENT: The focus of micrometastasis measures 0.5mm in greatest dimension. Case has been reviewed in consultation with Dr. Todd who concurs with the above diagnosis. IDC:AM
[2024-04-06] MEDS: Lactated Ringers 1,000 ML 15 ML IV ×2 (09:15→12:45)
--- NOTE | 2024-04-06 09:30 | NM_ITS ---
PROCEDURE: NUCLEAR MEDICINE Injection Mathews Node - RIGHT breast(s). REASON FOR EXAM: Female, 79 years old. Right breast cancer. TECHNIQUE: Mathews node localization using radionuclide methods of the RIGHT breast(s) was performed following subcutaneous administration of 1.1 mCi of of sulfur colloid Tc-99m. COMPARISON STUDIES : NM - None. CR - Not available for review at this time. CT - Not available for review at this time. MR - Not available for review at this time. US - Not available for review at this time. FINDINGS: 1.1 mCi of technetium labeled sulfur colloid was injected subcutaneously in the right periareolar region for sentinel node imaging. NM/Lymph Node Injection Only IMPRESSION: 1.1 mCi of technetium sulfur colloid was injected subcutaneously in the right periareolar region for sentinel node imaging. Electronically Signed: Og Egan MD at 11:08 EDT ,
--- NOTE | 2024-04-06 10:25 | PCM.HP.BLA ---
History and Physical Date of Admission: 04/06/24 Intake Vital Signs 02/17/2412:36 Height 5 ft 3 in Weight: 178 lb BMI 31.5 BP 147/75 H Blood Pressure Location Rt brachial Position Sitting Respiration 18 Pulse 80 Pulse Source Monitor Temp 97.4 F L Temp Source Temporal Pulse Oximetry (%) 95 Oxygen Delivery Method room air Intake Visit Reasons: BREAST BIOPSY 1 WK FU Chief Complaint: breast biopsy one week f/u [employer] Arch[employer] Required: No Accompanied by: Daughter Is patient in pain?: No Allergies meloxicam [From Mobic] Allergy (Verified 02/23/24 15:01) Shortness of breathpropoxyphene [From Darvon] Allergy (Verified 02/23/24 15:01) Nausea/Vom/Diarrhea Medications celecoxib 200 mg capsule (Celebrex) 200 mg PO DAILY PRN 05/23/23 [History Confirmed 02/23/24] hydrochlorothiazide 25 mg tablet 12.5 mg PO DAILY 05/23/23 [History Confirmed 02/23/24] lisinopril 10 mg tablet 10 mg PO DAILY 05/23/23 [History Confirmed 02/23/24] tramadol 50 mg tablet 50 mg PO Q6H PRN severe pain 05/23/23 [History Confirmed 02/23/24] Subjective Details: Patient is doing well after breast biopsy with no issues. Objective Details: Mild ecchymosis of the right breast with a large mass Coding Level of Care Code Off vis,est,level 3 Diagnoses Breast cancer, right C50.911 [facility] Medical History (Updated 02/23/24 @ 15:[address] Sean Johnson MD) Acute bronchitis Benign essential HTN BMI 37.0-37.9, adult Breast pain Chronic kidney disease, stage 3 unspecified Edema Encounter for long-term (current) use of other medications Generalized osteoarthrosis Left hip pain Lichen planus Low back pain, unspecified Nausea Obesity, diabetes, and hypertension syndrome Olecranon bursitis Other screening mammogram Parotid sialolithiasis Pharyngitis Right knee DJD Rotator cuff tendonitis Sciatica, right side Screening for cardiovascular condition Shortness of breath Shoulder injury Type 2 diabetes mellitus with chronic kidney disease Vertigo Surgical History (Updated 02/17/24 @ 12:36 by Annalee Murguia LPN) History of cholecystectomy Family History (Updated 04/16/24 @ 12:36 by Annalee Murguia LPN) Aunt Breast cancer Social History (Reviewed 11/18/23 @ 13:46 by Carley Stevens 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 It occupies 1/3-1/2 of her breast tissue. With it being so large I recommend against partial mastectomy unless she was willing to do preoperative chemotherapy which she says she does not think she would like to do chemotherapy unless necessary. She did discuss doing a mastectomy with sentinel lymph node biopsy on the right. She would also like prophylactic mastectomy of the left for symmetry and for reconstructive purposes. I discussed bilateral simple mastectomy with right sentinel lymph node biopsy with the patient in detail. I discussed the risks including but not limited to bleeding, infection, injury other organs such as the nerves or blood vessels in the axilla or seroma formation. Patient understands all the risks and is willing to proceed. I would like the patient to see oncology first for preoperative workup for metastatic disease. The mass is very large and I do not want to put her through a bilateral mastectomy and axillary surgery if not necessary. I will see if she can go down to talk to them and discuss staging workup with imaging and discuss possible neoadjuvant chemotherapy to shrink the mass although I believe that is unlikely. Sean Johnson MD Pager: [facility] [address] [place] [address], [address] [place] [address] Office: I have examined the patient and the H&P has been reviewed. There are no clinical changes since date of exam.
[2024-04-06 12:01] LABS: Bedside Glucose 150 mg/dL (74-106)
[2024-04-06] MEDS: 0.9% Normal Saline (Pres. free 10 ML Vial (12:35)
[2024-04-06] MEDS: Isosulfan Blue 1% 5 ML Vial (12:35)
--- NOTE | 2024-04-06 12:38 | PCM.PRE.AN2 ---
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 When Was Last Pacemaker Check QUESTION #4 FULL TEXT: You/Your Family Experience fever (hyperthermia) with Anesthesia Any additional information?: No Airway/Respiratory Assessment Mouth opens (cm): 3 Mallampati Score: II Teeth Condition: Intact Respiratory Assessment - construction specialist: Respiratory Tract Infection Hx - construction specialist Hx Respiratory Tract Infection No 03/22/24 08:37 Any additional information?: No STOP Sleep Apnea STOP Sleep Apnea - construction specialist: STOP Sleep Apnea - construction specialist Hx Hypertension Yes: CONTROLLED ON MED 03/22/24 08:37 Hx Sleep Apnea Yes 03/22/24 08:37 CPAP Yes 03/22/24 08:37 BIPAP No 03/22/24 08:37 Do you snore loudly (louder than talking or can be heard Do you often feel tired/ fatigued/ sleepy during daytime? Has anyone observed you stop breathing during sleep? STOP Results Positive 03/22/24 08:37 QUESTION #5 FULL TEXT : Do you snore loudly (louder than talking or can be heard through closed doors)? Any additional information?: No Tobacco Use History Tobacco Use History - construction specialist: Tobacco Use Histor - construction specialist Tobacco Use Smoking Status Former smoker 03/22/24 08:37 Hx Tobacco Use No 03/22/24 08:37 Years Smoking Packs Smoked per Day Smoking Cessation Date was No - quit smoking greater 03/22/24 08:37 within the last 15 years than 15 years ago Hx Smoking Cessation Date Hx Smoking Cessation Counseling /Reproduction History /Reproductive History - construction specialist: /Reproductive Hx- construction specialist Hx Now Gestational Age (in weeks): EDC: Hx Hx Para Hx Section SAB Any additional information?: No Hematologic Medial History Hematologic Hx - construction specialist: Hematologic Medical Hx - supervisor coremaker Hx of Blood Transfusion No 03/22/24 08:37 Hx of Transfusion in last 3 No 03/22/24 08:37 Months Date of Last Transfusion (if within last 3 months) Ever experience any problems No 03/22/24 08:37 with transfusion(s)? Specify any problems Hx of Preganancy in last 3 No 03/22/24 08:37 Months Nurse Filling Out Transfusion VCHRISTIN 03/22/24 08:37 & Questions: Date: 03/22/24 03/22/24 08:37 Time: 08:38 03/22/24 08:37 Patient unable to answer at this time (ie. confused, unrespo Any additional information?: No PONV PONV - construction specialist: PONV - construction specialist Female Yes 03/22/24 08:37 HX of Motion Sickness No 03/22/24 08:37 HX of N/V After Surgery Yes 03/22/24 08:37 Non-Smoker Yes 03/22/24 08:37 Duration of Surgery greater Yes 03/22/24 08:37 than 60 minutes Number of Risk Factors 4 03/22/24 08:37 PONV Score Severe Risk 03/22/24 08:37 Any additional information?: No Anesthesia focused assessment* Height & Weight: Anesthesia: Height & Weight Height 1.6 m 03/30/24 08:44 Weight: 2.353 kg 04/06/24 09:08 Body Mass Index (BMI) 30.9 03/30/24 08:44 Temperature: 98.4 F Pulse Rate: 77 Blood Pressure: 153/59 Respiratory Rate: 16 Pulse Ox: 94 Active Medications: Current Medications Generic Name Dose Route Start Last Admin Trade Name Freq PRN Reason Stop Dose Admin Lactated Ringer's 1,000 mls @ 15 mls/hr 04/06/24 09:00 04/06/24 09:15 IV 15 mls/hr .Q48H MARY Administration Focused labs Anesthesia Preop lab: CBC WBC 8.4 K/mm3 (4.4-11.0) 02/25/24 10:42 RBC 4.52 M/mm3 (4.2-5.4) 02/25/24 10:42 Hgb 12.4 g/dL (12.0-15.0) 02/25/24 10:42 Hct 39.5 % (37-47) 02/25/24 10:42 Plt Count 283 K/mm3 (150-450) 02/25/24 10:42 CHEMISTRY Potassium 3.9 mmol/L (3.5-5.1) 02/25/24 10:42 Sodium 140 mmol/L (136-145) 02/25/24 10:42 BUN 28 mg/dL (7-18) H 02/25/24 10:42 Creatinine 1.20 mg/dL (0.55-1.02) H 02/25/24 10:42 Glucose 222 mg/dL (74-106) H 02/25/24 10:42 COAG Assessment & Plan Anesthesia* Anesthesia Assessment Anesthesia Assessment: Discussed sedation and/or anesthesia options, risks, benefits, and alternatives with patient/parents/legal guardian. Questions invited. The patient/parents/legal guardian/POA seems to understand and agrees to proceed with anesthesia plan. Reviewed the physical assessment, medical history, allergy history and patient home medications list prior to surgery/procedure/anesthetic and documented any changes. Performed airway and anesthesia risk assessments. Procedural Plan (POC = Plan of care) Procedural Plan:: Proceed w/ POC Anesthesia Type Anesthesia Type: General Review of Systems (Anesthesia) ROS Narrative System reviewed and no additional complaints, except as documented. 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 Kidney stones Encounter for long-term (current) use of other medications Screening for cardiovascular condition Other screening mammogram Shoulder injury Vertigo Nausea Lichen planus Acute bronchitis Pharyngitis BMI 37.0-37.9, adult Edema Obesity, diabetes, and hypertension syndrome Shortness of breath Breast pain Chronic kidney disease, stage 3 unspecified Rotator cuff tendonitis Olecranon bursitis Sciatica, right side Low back pain, unspecified Left hip pain Right knee DJD Generalized osteoarthrosis Parotid sialolithiasis Benign essential HTN Type 2 diabetes mellitus with chronic kidney disease Home Medications ?Medication ?Instructions ?Recorded ?Last Taken ?Type celecoxib 200 mg capsule (Celebrex) 200 mg PO DAILY PRN pain 05/23/23 04/05/24 History hydrochlorothiazide 25 mg tablet 12.5 mg PO DAILY 05/23/23 04/05/24 History lisinopril 10 mg tablet 10 mg PO DAILY 05/23/23 04/06/24 05:00 History tramadol 50 mg tablet 50 mg PO Q6H PRN severe pain 05/23/23 04/04/24 History Allergy/AdvReac Type Severity Reaction Status Date / Time meloxicam (From Mobic) Allergy Shortness Verified 04/06/24 09:06 of breath propoxyphene (From Darvon) Allergy Nausea/Vom/ Verified 04/06/24 09:06 Diarrhea hydromorphone (From Dilaudid) AdvReac Severe Nausea/Vom/ Verified 04/06/24 09:06 Diarrhea Family History Aunt Breast cancer Mother Cancer Lung Father CVA (cerebral vascular accident) Heart disease Sister Hemochromatosis Surgical History Hx of cystoscopy H/O: hysterectomy History of cholecystectomy Social History Smoking Status: Former smoker how long ago did patient quit smokin second hand exposure: Yes caffeine: Yes
[2024-04-06] MEDS: Cefazolin 2 GM in 0.9% Normal Saline (100mL Bag) 100 ML IV (12:44)
--- NOTE | 2024-04-06 13:22 | AXNB_PTH ---
PATIENT: ABUNDIO VAZQUEZ LOC: MS3 U#:[id number] AGE/SX: 79/F [place] [facility] [place]: Dr. Sean Johnson MD : 1945 BED: 1 DIS: 04/07/2024 SPEC #: [id number] RECD: 04/06/24 14:35 STATUS: MARÍA ELENA MORFIN #: [id number] EWS: 04/06/24 13:[address]: Sean Johnson DEPT: SURGICAL PATHOLOGY RECD BY: Nitin Porras ENTERED: 04/06/24 14:36 SP TYPE: AX NODE BX OTHR DR: Dr. Dex Justin MD Tissues: A - Axillary lymph node, NOS B - Right breast, NOS C - Left breast, NOS Procedures: Frozen Section (charge) Surgery Specimen Level IV Surgery Specimen Level V HEADER OPERATION: Bilateral mastectomy and right axillary sentinel lymph node biopsy with blue dye PRE-OP DIAGNOSIS: Right breast cancer TISSUE SUBMITTED: A- Right sentinel lymph node, B- Right breast-long stitch- lateral, short stitch-superior, C- Left breast- suture long- lateral, short superior FROZEN SECTION DIAGNOSIS A. Right axillary sentinel lymph node/biopsy: One lymph node, negative for metastatic carcinoma. MICROSCOPIC DIAGNOSIS A. Right axillary sentinel lymph node, biopsy: One lymph node positive for micrometastatic carcinoma. See comment. B. Right breast, modified radical mastectomy: Invasive ductal carcinoma. One axillary lymph node, positive for metastatic carcinoma. See cancer summary in the comment section. C. Left breast, simple mastectomy: Adenosis and intraductal hyperplasia without atypia. Focal dense fibrosis and lobular inflammation. Nipple, dermal chronic inflammation. SJ/mr 04/12/2024 COMMENT A. Immunohistochemistry supports the above diagnosis ([id number]). B. INVASIVE BREAST CANCER SUMMARY: Procedure - Total mastectomy Laterality - right Tumor: Site - central and retroareolar Size - 6.0 x 5.0 x 5.0cm Histologic type - invasive ductal carcinoma, no special type Focality - single focus of invasive carcinoma. Histologic Grade (Hewitt grade): Glandular/tubular differentiation - score 3 Nuclear pleomorphism - score 2 Mitotic count - score1 Overall grade - 2 (score of 6) Ductal carcinoma in situ: Present, focal Size (extent) of DCIS- ductal in situ comprise less than 1% of the total tumor volume. Architectural patterns - Cribiform Nuclear grade - grade- 2-3 (intermediate to high) Necrosis - not identified Number of blocks with DCIS - 1 Number of blocks examined - 15 Lobular carcinoma in situ (LCIS) - Not identified Tumor extension: Skin - Tumor directly invades into the dermis without skin ulceration Nipple - Ductal carcinoma in situ does not involve nipple epidermis Invasive carcinoma extends into the nipple dermis Skeletal muscle - Present and uninvolved Margins: Margins are free of invasive and ductal carcinoma in situ. Distance of invasive carcinoma from closest margin - 3.0 cm from inferior margin. Distance of in situ carcinoma from closest margin - 3.0 cm from inferior margin. Lymph nodes: Number of sentinel lymph nodes examined - 1 Total number of lymph nodes examined (sentinel and nonsentinel) - 2 Number of lymph nodes with macrometastases - 1 (specimen B) Number of lymph nodes with micrometastases - 1 (specimen A, measures 0.5 mm in greatest dimension). Number of lymph nodes with isolated tumor cells - 0 Size of largest metastatic deposit - 3.0cm Extranodal extension - Present, it measures 1.0cm in greatest dimension. Treatment effect: no known presurgical therapy. Lymphvascular invasion - not identified Dermal lymphvascular invasion - not identified Distant metastasis - Not applicable Additional pathologic findings - Fibrocystic changes, adenosis and intraductal hyperplasia without atypia Hyalinized fibroadenoma (0.2cm in greatest dimension) Lobular involution. Brest miomarker studies- Previously performed ([id number] and [id number] ER - positive, >95%, (strong intensity) OR - positive, >95%, (moderately intensity) Her2 krista - Equivocal (1-2+) Her2 by dual MAXIME - negative, not amplified Ki67 - positive, ~5% (low) Microcalcifications - Present in DCIS and non- neoplastic tissue (vascular calcifications) Clinical history - Please make reference to previous specimen [id number], right breast tissue, core biopsy diagnosis of invasive ductal carcinoma. PATHOLOGIC STAGE: pT3 pN1a pMx The above summary is in compliance with [employer] (CAP) Cancer Protocols Checklist and [place] [employer] Committee on Cancer (AJCC), Staging Manual, 8th Ed. Case has been reviewed in consultation with Dr. Todd who concurs with the above diagnosis. IDC:AM MICROSCOPIC DESCRIPTION Slides are reviewed. GROSS DESCRIPTION A. Received fresh for frozen section diagnosis labeled with the patient's name is a specimen designated Right axillary. The specimen consists of a piece of adipose tissue measuring 3.5 x 2.0 x 1.0cm. One lymph node is identified measuring 1.5cm in greatest dimension. The lymph node is bisected and submitted entirely for frozen section diagnosis in one cassette. GERAROD/ 04/06/2024 B. Received in fixative is one container labeled with the patient's name and designated Right breast. The mastectomy specimen consists of breast tissue with overlying skin ellipse. The breast tissue measures 25.0 x 19.0 x 8.0cm. The skin ellipse measures 19.0 x 18.5cm. The nipple measures 1.1cm in greatest dimension. The skin surface shows blue-dye discoloration. No skin lesion is identified. The specimen is inked as follows: posterior - black, superior - blue, inferior - green, medial - red and lateral - orange. A small portion of axillary tissue is also noted measuring 5.0 x 3.0 x 2.0cm. Also present in the container are two pieces of skin measuring 3.2 x 1.6 x 1.0cm and 3.0 x 1.5 x 1.0cm. Also present in the container is a detached piece of fibroadipose tissue measuring 5.5 x 4.0 x 1.5cm. Section of the breast tissue reveal a cruz indurated mass measuring 6.0 x 5.0 x 5.0cm. This mass is present in the central portion of the breast tissue. This mass is present 3.0cm away from the closest inferior margin. Sections of axillary tissue reveal a cruz indurated nodule, a possible lymph node measuring 3.0 x 2.0 x 1.5cm. This lymph node appears to be completely replaced by the metastatic tumor. Section of the rest of the breast tissue reveal cruz-yellow adipose cut surfaces mixed with cruz-white surface area. Sections of detached pieces of skin and fibroadipose tissue do not reveal any mass lesions. Aircraft Design Engineer sections are submitted as follows: 1-3- one possible lymph node, axillary tissue, entirely submitted. More dictation will follow later after fixation. [facility] 04/07/2024 More sections are submitted as follows: 4- nipple, entirely submitted, 5- perpendicular medial, lateral margins and skin overlying the tumor, 6- perpendicular superior, inferior, and posterior margin, 7-11- tumor, 12-15- correspondence representative section adjacent to and away from the tumor. Sections are submitted after additional fixation. [facility] 04/08/2024 C. Received in fixative is one container labeled with the patient's name and designated Left breast. The mastectomy specimen consists of a breast tissue and skin ellipse. The breast tissue measures 25.0 x 27.0 x 9.0cm. The skin ellipse measures 20.0 x 22.0cm. The nipple measures 1.0cm in greatest dimension. No skin lesion is identified. The specimen is inked as follows: posterior - black, superior - blue, inferior - green, medial - red and lateral - orange. Sections reveal yellow adipose cut surfaces mixed with cruz-white fibrous area. No mass lesion is identified. More dictation will follow after fixation. [facility] 04/07/24 Aircraft Design Engineer sections are submitted in 10 cassettes as follows: 1- nipple, entirely submitted, 2-4- lateral portion breast tissue, 5-7- middle portion breast tissue, 8-10- medial portion breast tissue. [facility] 04/08/2024 TC:0 CPT:09444 x2,49479, 70602 ADDENDUM ADDENDUM ADDENDUM ADDENDUM ADDENDUM ADDENDUM ADDENDUM ADDENDUM 05/04/2024 16:11 ADDENDUM 05/04/2024 16:11 ADDENDUM 05/04/2024 16:11 ADDENDUM 05/04/2024 16:11 ADDENDUM 05/04/2024 16:11 ONCOTYPE DX BREAST RECURRENCE SCORE REPORT- Block B8 RECURRENCE SCORE RESULT: 17 DISTANT RECURRANCE RISK AT 5 YEARS: 4% GROUP AVERAGE ABSOLUTE CHEMOTHERAPY BENEFIT: No apparent chemotherapy benefit (<1%)
[2024-04-06] MEDS: Bupivacaine 0.25% 30 ML Vial ×2 (14:08→14:44)
--- NOTE | 2024-04-06 14:51 | OP.PCM_ITS ---
Report of Operation Date of Procedure: 04/06/24 Pre-Operative Diagnosis: Right breast cancer central Post-Operative Diagnosis: Same Surgery/Procedure Performed:: 1. Right simple mastectomy 2. Right axillary sentinel lymph node biopsy 3. Left prophylactic mastectomy Type of Anesthesia: General/Regional Specimen's removed: 1. Right axillary lymph node 2. Right breast 3. Left breast Drains: DANIEL to bulb suction bilaterally Estimated Blood Loss (mL): 20 Description of Procedure: Patient was brought back to the operating room and general anesthesia was induced. A Liu catheter was placed. The right breast and axilla were prepped and draped in usual sterile fashion. Incision was then marked with a marker around the breast and then incised laterally using scalpel. Hemostasis was obtained using electrocautery. Flaps were created superiorly and inferiorly. Next dissection was carried to the right axilla and axillary contents were encountered. There was a radioactive lymph node that was resected using clips and sharp dissection. The 10-second count was 611. There were no other lymph nodes that were positive in the right axilla. There were no blue dye nodes in the right axilla. There were no palpable lymph nodes. Next the superior and inferior flaps were carried out medially until the sternum was encountered. Next the breast was taken off of the chest wall including the pectoral fascia using electrocautery dissection. The breast was marked and sent for pathology. The area was irrigated and suctioned dry and hemostasis was obtained using electrocautery. Hemoblast was sprayed over the pectoral area that was brought and then a drain was placed in the inframammary area. The drain was encircled around the flaps and placed into the axilla and sutured the skin existing 3-0 nylon. The skin was then reapproximated with 3-0 Vicryl suture in a running 4-0 Monocryl suture. Dermabond was applied. Next attention was paid to the left breast for the prophylactic side. All staff changed out of their gowns and we had a new set up on the opposite side. The left breast was prepped and draped in usual sterile fashion. Markings were made and the incisions were made superiorly and inferiorly. Next flaps were raised superiorly and hemostasis was obtained using electrocautery. Inferior flaps were then obtained and the breast was removed medial to lateral including the pectoral fascia using electrocautery. Hemostasis was obtained using electrocautery and the cavity was irrigated and suctioned dry and hemoblast was placed. A drain was placed into the inferior flap and sutured to the skin using 3-0 nylon suture. The drain was placed around the cavity and then the dermis was closed with interrupted 3-0 Vicryl sutures and the epidermis was closed with running 4-0 Monocryl suture. Dermabond was applied. Next both balls were placed to bulb suction and fluffs were placed over the incisions as well as a surgical bra. Patient was awoken and taken to PACU in stable condition. Liu was removed at the end of the case. . Synoptic Portion: Element Response Options Operation performed with curative intent. Yes Tracer(s) used to identify sentinel nodes in the upfront surgery (non- neoadjuvant) setting (select all that apply). Radioactive tracer and blue dye Tracer(s) used to identify sentinel nodes in the neoadjuvant setting (select all that apply). N/A All nodes (colored or non-colored) present at the end of a dye-filled lymphatic channel were removed. Yes All significantly radioactive nodes were removed. Yes All palpably suspicious nodes were removed. Yes Biopsy-proven positive nodes marked with clips prior to chemotherapy were identified and removed. N/A Admit VTE Documentation VTE Mechan Device Prophylaxis: SCD's
[2024-04-06 17:11] LABS: Bedside Glucose 222 mg/dL (74-106)
[2024-04-06] MEDS: oxyCODONE 5 MG Tablet PO (18:17)
[2024-04-06] MEDS: 0.9% Normal Saline (1000mL) 1,000 ML 60 ML IV (22:08)
[2024-04-07 00:34] VITALS: BP 141/74; PULSE 74; RESP 16; TEMP 36.7; O2SAT 97
[2024-04-07 02:00] VITALS: O2SAT 96
[2024-04-07] MEDS: Acetaminophen 325 MG Tablet 650 MG PO (05:08)
[2024-04-07] MEDS: oxyCODONE 5 MG Tablet PO (05:08)
[2024-04-07 05:14] VITALS: BP 155/65; PULSE 77; RESP 16; TEMP 36.6; O2SAT 95
--- NOTE | 2024-04-07 06:29 | PN.SURG_ITS ---
Subjective Subjective Patient is doing well this morning and comfortable Objective Data Objective Data Vital Signs: Vital Signs Temp Pulse Resp BP Pulse Ox O2 Del Method O2 Flow Rate 97.8 F 77 16 155/65 H 95 Nasal Cannula 2 04/07/24 05:14 04/07/24 05:14 04/07/24 05:14 04/07/24 05:14 04/07/24 05:14 04/07/24 05:14 04/07/24 05:14 Oxygen Flow Rate (L/min) 2 Oxygen Delivery Method Nasal Cannula Weight: 176 lb 9.6 oz Body Mass Index (BMI) 31.2 Intake & Output: Intake and Output for Last 24 Hours 04/05/24 04/06/24 04/07/24 23:59 23:59 23:59 Intake Total 1425.25 / 1425.25 200 / 200 Output Total 345 / 345 35 / 35 Balance 1080.25 / 1080.25 165 / 165 Lab / Micro Data Labs: Laboratory Results - last 24 hr 04/06/24 09:12: POC Glucose 150 H 04/06/24 16:46: POC Glucose 222 H Radiography Diagnostic Testing: Radiology Impression [place] Node 04/06/24 09:30 IMPRESSION: 1.1 mCi of technetium sulfur colloid was injected subcutaneously in the right periareolar region for sentinel node imaging. Electronically Signed: Og Egan MD at 11:08 EDT , Physical Exam Const oriented x3 and no apparent distress Resp normal respiratory effort GI soft to palpation and non-tender Assessment & Plan Assessment/Plan (1) Breast cancer, right: QUALIFIERS: Breast location: unspecified site of breast Estrogen receptor status: positive Patient sex: female Qualified Code(s): C50.911 - Malignant neoplasm of unspecified site of right female breast; Z17.0 - Estrogen receptor positive status [ER+] PLAN: Patient is doing well after bilateral mastectomy. Drains are serosanguineous. The flaps look healthy and viable and the incisions are clean dry and intact. Continue pain control and DANIEL drains. Likely discharge this afternoon if tolerating diet and pain well-controlled. Sean Johnson MD Pager: [facility] [address] [place] [address], [address] [place] [address] Office:
--- NOTE | 2024-04-07 06:30 | DCINST_ITS ---
Discharge Instructions Procedure Breast Surgery Diet Discharge Diet: No restrictions Activity Discharge Activity: May Not Drive (for 2-3 days or while taking narcotic pain medications.) and May Shower (Okay to sponge bathe while drains in place startin g today, shower next week after drains are removed) Lifting Restrictions: 15 lbs for 2 weeks Dressing / Incision Call your doctor if your incision/area has: Continuous Slow Oozing, Sudden Increased Bleeding, Increased Pain/ Swelling, Increased Redness, Foul Smelling Discharge and Swelling at the incision site Call your doctor if you observe: Fever of 101 or Higher Suture Line Care: Avoid Pulling/Pushing and Avoid Pinching/Bending Cleanse incision/area with: Soap & Water Drain: Suction Additional Dressing/Incision Instructions:: Record drainage output daily and strip drains twice a day Follow Up Care Please Follow Up With: Sean Johnson MD When: Please call to schedule 1 week follow up appointment. [phone] Test Results: Test results from this visit will be discussed in further detail at your follow- up appointment, if applicable. Discharge Plan Admission Admit Date/Time: 04/06/24 14:58 Attending Provider: Sean Johnosn Primary Care Provider: Dex Justin Discharge Orders/Prescriptions Prescriptions: New acetaminophen 325 mg Tablet 650 mg PO Q4H PRN PRN (Reason: Pain 1-10 Or Fever) Qty: 0 0RF oxycodone 5 mg Tablet 5 - 10 mg PO Q4H PRN PRN (Reason: Pain Score 4-10) 5 Days Qty: 30 0RF Continued tramadol 50 mg tablet 50 mg PO Q6H PRN (Reason: severe pain) Rx Instructions: 1-2 tabs celecoxib [Celebrex] 200 mg capsule 200 mg PO DAILY PRN (Reason: pain) lisinopril 10 mg tablet 10 mg PO DAILY hydrochlorothiazide 25 mg tablet 12.5 mg PO DAILY Referrals / Follow Up: Dex Justin MD [Primary Care Provider] - Disposition Disposition (needs filled in before D/C Order can be placed): Home, Self Care
[2024-04-07 07:16] LABS: Absolute Lymphocyte Count 1.97 X10^3/uL (0.83-4.51); Basophil# 0.02 X10^3/uL; Basophil% 0.1 % (0-1); Hemoglobin 10.5 g/dL (12.0-15.0); Lymphocyte # 1.97 X10^3/ul (0.83-4.51); Lymphocyte % 12.1 % (19-41); Mean Corp Hgb Conc 30.9 g/dL (32-36); Mean Corpuscular Hgb 27.9 pg (27.0-32.0); Mean Corpuscular Volume 90.2 fL (81-99); Mean Platelet Vol. 9.8 fl (6.2-12.0); Monocyte# 1.24 X10^3/uL; Monocyte% 7.6 % (0-10); NRBC Flagged by Analyzer 0 % (0-5); Neutrophil # 13.01 X10^3/uL (2.7-7.7); Neutrophil % 79.7 % (47-70); Platelet Count 262 K/mm3 (150-450); RBC Distribution Width CV 14.2 % (11.6-14.6); RBC Distribution Width SD 46.7 fl (35.1-43.9); Red Blood Count 3.77 M/mm3 (4.2-5.4); White Blood Count 16.3 K/mm3 (4.4-11.0)
[2024-04-07 08:14] VITALS: BP 130/58; PULSE 69; RESP 18; TEMP 37.1; O2SAT 96
--- NOTE | 2024-04-07 09:05 | WOUNDNOTE ---
Pt states and possibly her daughter will be in later today to pick her up. will review drain care and dressing change with patient and family. pt has sheet to record DANIEL drainage and is aware she will need to bring the sheet with her to the follow up appt. pt states no one has shown her how to strip the drains yet. will review this with patient as well and pt is aware this needs to be done twice a day to assist in preventing blockage of the tubing. pt to call out when family arrives.
[2024-04-07 09:54] LABS: Anion Gap 7 (5-15); BUN 40 mg/dL (7-18); Calcium,Total 8.8 mg/dL (8.5-10.1); Chloride 106 mmol/L (98-107); Creatinine, Serum 1.29 mg/dL (0.55-1.02); EST Glomerular Filtration Rate 43 mL/min (>60); Est Glom Filt Rate - Afr Amer 51 mL/min (>60); Estimated Creatinine Clearance 36.02 ml/min; Glucose 178 mg/dL (74-106); Potassium 5.1 mmol/L (3.5-5.1); Sodium Level 137 mmol/L (136-145)
--- NOTE | 2024-04-07 12:00 | WOUNDNOTE ---
Prior to discharge home, this nurse educated patient and daughter on emptying the DANIEL drains and stripping the tubing. both are aware the tubing should be stripped twice a day. cups were given to measure the drainage and both are aware to record drainage and bring form to follow up appt. 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 Dermabond is intact. cleansed DANIEL sites with peroxide and applied new clean dressings. secured with tape. placed ABD pads acrocc the chest and applied an MICHELLE wrap. the largest surgical bra in the OR is a 2XL and patient states was very uncomfortable. pt states she wears at least a 3XL at home. both state understanding of care and deny further questions.
[2024-04-07 12:29] VITALS: BP 105/89; PULSE 76; RESP 18; TEMP 36.9; O2SAT 98
== END 2024-04-07 12:44 | disposition home or self-care (01) ==
LOC: SDC 16:24 → MS3 16:24
PROVIDERS: Admitting Provider Surgery; PCP Family Medicine; Referring Provider Surgery; Visit Provider Surgery
PROC: 0HBV0ZZ Excision of Bilateral Breast, Open Approach (ICD-10-PCS; CPT 19302; principal; 2024-04-06 12:15)
DX: C50.111 Malignant neoplasm of central portion of right female breast (principal); C77.3 Secondary and unspecified malignant neoplasm of axilla and upper limb lymph nodes; E11.22 Type 2 diabetes mellitus with diabetic chronic kidney disease; N18.30 Chronic kidney disease, stage 3 unspecified; Z87.891 Personal history of nicotine dependence; Z17.0 Estrogen receptor positive status [ER+]; E66.9 Obesity, unspecified; I12.9 Hypertensive chronic kidney disease with stage 1 through stage 4 chronic kidney disease, or unspecified chronic kidney disease; Z68.31 Body mass index [BMI] 31.0-31.9, adult; Z40.01 Encounter for prophylactic removal of breast; G47.33 Obstructive sleep apnea (adult) (pediatric); Z79.899 Other long term (current) drug therapy; R06.02 Shortness of breath
CPT/HCPCS: 19303; 38525; 00400; 36415; 38792; 80048; 82962; 85025; 88305; 88307; 88331; 88341; 88342; 99221; A4648; A9541; J7030; J7120; G0378; J2405; J3490; Q9968

== ENCOUNTER → 2024-06-08 | Outpatient (CLI) | payer MEDICARE, OTHER, SELFPAY ==
--- NOTE | 2024-06-08 14:17 | BD_ITS ---
STUDY: DUAL ENERGY X-RAY ABSORPTIOMETRY / DXA REASON FOR EXAM: Female, 79 years old. SCREENING TECHNIQUE: Bone Mineral Density (BMD) measurements of both forearms were obtained. COMPARISON: None. FINDINGS: Right Forearm: g/cm2 (0.566) / T-score (-0.2) / Z-score (2.6) Left Forearm: g/cm2 (0.528) / T-score (-0.9) / Z-score (1.9) BD/Dexa Bone Density/Append Skel IMPRESSION: The patient is considered normal as outlined below according to World [employer] Organization (WHO) criteria with a low fracture risk. Reference Information: The T-score is the number of standard deviations above or below the standard which is normal for young adults at their peak bone mineral density. The World Health Organization (WHO) interprets the T-scores as follows: Above -1 Normal bone density Between -1 and -2.5 Osteopenia Equal to / or below -2.5 Osteoporosis As a practical clinical guideline, osteopenia may be graded as follows: Mild -1 through -1.5 Moderate -1.6 through -2.0 Severe -2.1 through -2.4 The Z-score is the number of standard deviations above or below age-matched controls. A Z-score of less than -1.5 would be considered abnormal. References: 1. NIH Osteoporosis and Related Bone Diseases www osteo.org 2. International Society for Clinical Densitometry www iscd.org 3. National Osteoporosis Foundation www nof.org Electronically Signed: Og Egan MD at 8:49 EDT ,
== END | disposition home or self-care (01) ==
LOC: OPBD 14:11
PROVIDERS: PCP Family Medicine; Referring Provider Internal Medicine Hematology & Oncology; Visit Provider Internal Medicine Hematology & Oncology
DX: Z78.0 Asymptomatic menopausal state (principal)
CPT/HCPCS: 77081